=== PATIENT | female | born 1975 ===

== ENCOUNTER 2018-09-01 09:57 | Emergency (ER) | payer OTHER, SELFPAY ==
--- NOTE | 2018-09-01 10:12 | ED_ITS ---
HPI - Extremity Injury (Lower) General Chief Complaint: Extremity Problem,Nontraumatic Stated Complaint: RT FOOT AND ANKLE INJURY Time Seen by Provider: 09/01/18 10:11 Source: patient Mode of arrival: ambulatory Limitations: no limitations History of Present Illness HPI Narrative: Patient is a 43-year-old female here for evaluation of right foot pain. She states that she thinks that her right foot has been hurting for the past year since she has to ?push myself up? by the bar on the bottom of his stool that she sits on while at work. No specific trauma. She states that yesterday which she pushed herself up the pain became worse. No ankle pain. Has not tried anything for this prior to arrival. Related Data Allergies Allergy/AdvReac Type Severity Reaction Status Date / Time No Known Drug Allergies Allergy Verified 09/01/18 10:20 Review of Systems Constitutional Denies fever(s) Cardiovascular Denies chest pain and Denies dyspnea Respiratory Denies dyspnea Gastrointestinal Gastrointestinal: Denies abdominal pain Musculoskeletal Denies myalgias, Denies deformity, Reports arthralgias (Right foot), Denies joint swelling and Denies tingling Integumentary/Breasts Denies rash Neurologic Denies tingling and Denies paresthesias PFSH Medical History Hypothyroid (Acute) Surgical History No pertinent past surgical history (Acute) Social History marital status: Smoking Status: Unknown if ever smoked Exam Initial Vital Signs Initial Vital Signs: Vital Signs Temperature 98.6 F 09/01/18 10:14 Pulse Rate 104 H 09/01/18 10:14 Respiratory Rate 18 09/01/18 10:14 Blood Pressure 159/96 H 09/01/18 10:14 Pulse Oximetry 100 09/01/18 10:14 Const General: cooperative, healthy appearing, comfortable, well developed, well groomed and No acute distress Orientation: alert, awake and oriented x3 Resp Effort & Inspection: normal respiratory effort Cardio Pulses: dorsalis pedis present on the right Skin Lesions: no lesions Rashes: no rashes Neuro Sensory Exam: no sensory deficits noted Extrem Other: Right knee, right calf, right ankle unremarkable. Patient with tenderness to palpation over the dorsum of the right foot over the mid foot. Right toes unremarkable. No swelling. Psych Appearance: grossly normal and well kempt Course Orders Ordered: ED Orders 11/24/18 10:21 XR foot RT min 3V Stat Vital Signs - 8 hr 09/01/18 10:14 Temperature 98.6 F Pulse Rate 104 H Respiratory Rate 18 Blood Pressure 159/96 H Pulse Oximetry 100 MDM - Extremity Injury (Lower) Imaging Data X-ray foot: Radiologist's impression: PROCEDURE: XR FOOT RT MIN 3V INDICATIONS: Pain dorsum midfoot TECHNIQUE: 3 views of the foot were acquired. COMPARISON: None. FINDINGS: Bones: No fractures or dislocations. No suspicious bony lesions. Soft tissues: No tibiotalar joint effusion. Achilles tendon appears normal. IMPRESSION: No acute fracture. No osseous lesion. If clinical suspicion and/or symptoms persist, further assessment with repeat plainfilms, or advanced imaging (e.g., CT, MRI, or bone scan) may be helpful for further assessment. Dictated by: Juno Mendoza M.D. on 09/01/2018 at 10:50 Approved by: Juno Mendoza M.D. on 09/01/2018 at 10:50 [facility] Narrative Medical decision making narrative: No fractures noted on the x-ray. She is neurovascularly intact. No trauma. I did discuss all this with the patient. Informed her that there may be ligamentous injury however we cannot see that on the x-ray. We did discuss conservative treatments such as rest and ice and elevation and compression. Informed her that if she felt like she needed to change the way that she is sitting at work that she could talk with her employer about this. She is given return precautions. She expressed understanding. Discharge Plan Departure Patient Disposition: Home Clinical Impression: Strain of foot, right Instructions: How To Perform RICE (Rest, Ice, Compress, Elevate), DI for Foot Pain Activity Restrictions/Additional Instructions: You can use the crutches as needed for your comfort however you can also put pressure on her foot. If you feel like the chair your sitting in at work is causing your pain and then discuss with her employer about changing her work environment. You have no restrictions on her activities. Call your primary care doctor for a follow-up. Return to the emergency department for any new or worsening symptoms
[2018-09-01 10:14] VITALS: BP 159/96; PULSE 104; RESP 18; TEMP 37; O2SAT 100
--- NOTE | 2018-09-01 10:21 | DI.RAD.S_ITS ---
PROCEDURE: XR FOOT RT MIN 3V INDICATIONS: Pain dorsum midfoot TECHNIQUE: 3 views of the foot were acquired. COMPARISON: None. FINDINGS: Bones: No fractures or dislocations. No suspicious bony lesions. Soft tissues: No tibiotalar joint effusion. Achilles tendon appears normal. IMPRESSION: No acute fracture. No osseous lesion. If clinical suspicion and/or symptoms persist, further assessment with repeat plainfilms, or advanced imaging (e.g., CT, MRI, or bone scan) may be helpful for further assessment. Dictated by: Juno Mendoza M.D. on 09/01/2018 at 10:50 Approved by: Juno Mendoza M.D. on 09/01/2018 at 10:50
[2018-09-01 11:34] VITALS: BP 121/79; PULSE 74; RESP 14; O2SAT 100
--- NOTE | 2018-09-01 11:53 | PC.NURSE ---
Pt. refuses crutches - states has family at home that she can get some from
== END 2018-09-01 11:00 | disposition home or self-care (01) ==
PROVIDERS: Emergency Provider Emergency Medicine; PCP Naturopath
DX: S96.911A Strain of unspecified muscle and tendon at ankle and foot level, right foot, initial encounter (principal); X50.1XXA Overexertion from prolonged static or awkward postures, initial encounter; Y99.0 Civilian activity done for income or pay
CPT/HCPCS: 73630; 99282; 99283

== ENCOUNTER → 2025-09-13 12:13 | Outpatient (CLI) | payer BC, SELFPAY ==
--- NOTE | 2025-09-13 12:15 | DI.MG.S_ITS ---
MM screening mammo BI: 09/13/2025. BI-RADS: 0 CLINICAL: 50-year old female for bilateral screening mammogram. Tyrer-Cuzick lifetime risk of 10.6%. No personal or first-degree family history of breast cancer. PRIOR EXAMS: None. This is a baseline mammogram. MAMMOGRAPHY TECHNIQUE: 2D and 3D (tomosynthesis) digital mammographic views obtained, with additional images as needed for full coverage. Current study was also evaluated with a Computer Aided Detection (CAD) system. DENSITY C. The breasts are heterogeneously dense, which may obscure small masses. MAMMOGRAPHY FINDINGS Right: Upper at 12:00, Middle depth: Calcifications needing additional imaging evaluation. Left: No suspicious mass, asymmetry, microcalcification, or other abnormality seen. IMPRESSION: Right (Calcification): Upper at 12:00, Middle depth * Incomplete - calcification needing additional imaging evaluation. Left * No evidence of malignancy. RECOMMENDATIONS Right: Upper at 12:00, Middle depth * Further evaluation with diagnostic mammography. OVERALL ASSESSMENT CATEGORY BI-RADS-0: Incomplete - Need Additional Imaging Evaluation. ELECTRONICALLY SIGNED: Michael Monroe M.D. on 09/15/2025 at 06:46:28 AM PT Interpreting Station ID: [id number]
== END ==
PROVIDERS: PCP Naturopath; Referring Provider Naturopath; Visit Provider Naturopath
DX: Z12.31 Encounter for screening mammogram for malignant neoplasm of breast (principal); R92.333 Mammographic heterogeneous density, bilateral breasts
CPT/HCPCS: 77063; 77067